=== PATIENT | male | born 1990 | race Caucasian/White ===

== ENCOUNTER 2018-05-07 17:43 | Emergency (ER) | payer SELFPAY ==
[~2018-05-07] VITALS: Ht 190.5 cm; Wt 79.4 kg
--- OUTSIDE RECORDS SUMMARY | 2018-05-07 17:45 | XMS REPORT ---
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 Allergies, Adverse Reactions, Alerts Allergy Name Allergy Type Status Severity Reaction(s) Onset Date Inactive Date Treating Clinician Comments No Known Allergies DA Active U 2018-03-26 00:00:00 Medications This patient has no known medications.
--- OUTSIDE RECORDS SUMMARY | 2018-05-07 17:45 | XMS REPORT | Clinical Summary ---
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 04/17/2018 clindamycin (CLEOCIN HCL) Take 1 30 capsule 0 300 MG capsule capsule (300 9 mg total) by mouth 3 (three) times a day for 10 days. Active Problems Not on file Encounters Care Team Description Date Type Specialty Shaun Merlos MD Dentalgia (Primary Dx); Dental caries 04/07/2018 Emergency Emergency Medicine after 05/06/2017 Social History Date Tobacco Use Types Packs/Day Years Used Never Assessed Sex Assigned at Date Recorded Not on file Industry Job Start Date Occupation Not on file Not on file Not on file Travel End Travel History Travel Start No recent travel history available. Last Filed Vital Signs Time Taken Vital Sign Reading 04/07/2018 4:12 PM [employer] Blood Pressure 127/72 04/07/2018 4:12 PM [employer] Pulse 77 04/07/2018 3:02 PM [employer] Temperature 36.4 C (97.5 F) 04/07/2018 3:02 PM [employer] Respiratory Rate 16 04/07/2018 3:02 PM [employer] Oxygen Saturation 97% - Inhaled Oxygen - Concentration 04/07/2018 3:03 PM [employer] Weight 79.4 kg (175 lb) 04/07/2018 3:03 PM [employer] Height 190.5 cm (6' 3") 04/07/2018 3:03 PM [employer] Body Mass Index 21.87 Plan of Treatment Not on file Results Not on fileafter 05/06/2017 Advance Directives Patient has advance care planning documents on file. For more information, lisa owens contact: Roosevelt Del Valle [address] [place] [address]
[2018-05-07 18:19] LABS: BASOPHILS # (AUTO) 0.1 (0.0-0.1); BASOPHILS % 0.8 % (0.0-1.0); EOSINOPHILS # (AUTO) 0.1 (0.0-0.4); EOSINOPHILS % 1.2 % (0.0-6.0); HEMATOCRIT 44.7 % (38.2-49.6); HEMOGLOBIN 15.6 g/dL (14.0-18.0); LYMPHOCYTES # (AUTO) 2.1 (1.0-3.2); LYMPHOCYTES % 27.9 % (18.0-39.1); MEAN CORPUSCULAR HGB CONC 34.9 g/dL (31-35); MEAN CORPUSCULAR VOLUME 91.6 fL (81-99); MONOCYTES # (AUTO) 0.7 (0.2-0.8); MONOCYTES % 8.7 % (4.4-11.3); NEUTROPHILS # (AUTO) 4.6 (2.1-6.9); NEUTROPHILS % 60.9 % (38.7-80.0); PLATELET COUNT 328 x10e3/uL (140-360); RED BLOOD COUNT 4.88 x10e6/uL (4.3-5.7); RED CELL DISTRIBUTION WIDTH 13.5 % (11.7-14.4)
[2018-05-07 18:38] LABS: ALANINE AMINOTRANSFERASE 159 IU/L (0-55); ALBUMIN 4.5 g/dL (3.5-5.0); ALBUMIN/GLOBULIN RATIO 1.2 (0.8-2.0); ALKALINE PHOSPHATASE 112 IU/L (40-150); ANION GAP 12.1 mmol/L (8-16); BLOOD UREA NITROGEN 15 mg/dL (7-26); BUN/CREATININE RATIO 14 (6-25); CALCIUM 9.9 mg/dL (8.4-10.2); CARBON DIOXIDE 27 mmol/L (22-29); CHLORIDE 102 mmol/L (98-107); CREATININE, SERUM 1.04 mg/dL (0.72-1.25); EST GLOMERULAR FILTRATION RATE > 60 ML/MIN (60-); GLUCOSE 92 mg/dL (74-118); MAGNESIUM 2.2 MG/DL (1.3-2.1); POTASSIUM 4.1 mmol/L (3.5-5.1); SODIUM 137 mmol/L (136-145)
[2018-05-07 18:49] LABS: AMPHETAMINES SCREEN,URINE NEGATIVE (NEGATIVE); BENZODIAZEPINES SCREEN,URINE NEGATIVE (NEGATIVE); BILIRUBIN,URINE NEGATIVE (NEGATIVE); CLARITY,URINE SL CLOUDY (CLEAR); COLOR,URINE YELLOW (YELLOW); KETONES,URINE NEGATIVE (NEGATIVE); LEUKOCYTE ESTERASE ,URINE NEGATIVE (NEGATIVE); NITRITE,URINE NEGATIVE (NEGATIVE); PHENCYCLIDINE SCREEN,URINE NEGATIVE (NEGATIVE); PROTEIN,URINE DIPSTICK NEGATIVE (NEGATIVE); URINE UROBILINOGEN 8 mg/dL (0.2 - 1)
[2018-05-07 18:59] LABS: AMORPHOUS SEDIMENT,URINE MODERATE (FEW); BACTERIA,URINE MODERATE /HPF; EPITHELIAL CELLS,URINE FEW /LPF
[2018-05-07] MEDS ORDERED: ONDANSETRON HCL INJ 2MG/ML 2ML 2 MG/ML VIAL IV ONE (21:45)
[2018-05-07] MEDS ORDERED: SODIUM CHLORIDE 0.9% 1000ML 1,000 ML IV ONE (21:45)
[2018-05-07] MEDS ORDERED: FAMOTIDINE 20 MG/2 ML VIAL IV ONE (21:45)
[2018-05-08] MEDS ORDERED: CHLORDIAZEPOXIDE HCL 25 MG CAP PO ONE (00:45)
[2018-05-08 04:39] VITALS: BP 140/72
== END 2018-05-08 03:55 | disposition home or self-care (01) ==
LOC: ER 17:43
DX: F10.239 Alcohol dependence with withdrawal, unspecified (principal); R11.0 Nausea
CPT/HCPCS: 36415; 80053; 80307; 80320; 81001; 83735; 85025; 99283; J2405; J7030